=== PATIENT | male | born 1970 | race Caucasian/White ===

== ENCOUNTER 2021-07-08 12:41 | Emergency (ER) | payer BC, SELFPAY ==
--- NOTE | 2021-07-08 12:45 | RT.EKG_ITS ---
APPROVED REPORT Exam: Resting ECG Reason for Exam: dizzy Patient Location: E HR:67 bpm ECG Measurements Heart Rate 67 AXIS DC 145 P 55 QRSd 88 QRS 34 QT 382 T 17 QTc 403 Conclusion Sinus rhythm...normal P axis, V-rate 60- 99
[2021-07-08 12:47] VITALS: BP 139/88; PULSE 90; RESP 18; TEMP 36.4; O2SAT 98
--- NOTE | 2021-07-08 12:59 | W.ED.GENAD ---
Discharge Plan Disposition Patient Disposition: HOME Condition: Stable Discharge Details Clinical Impression: Vertigo Primary Care Provider: Unknown,Unknown ED Provider: Marisabel Adan Discharge Instructions Instructions: Vertigo (ED) Additional Instructions: Continue taking the meclizine as previously prescribed by your primary care provider. At this time head CT, lab, EKG and troponin are all largely within normal limits. Your blood sugar was slightly elevated at 126. Follow up with primary care provider in 3-5 days. Return to ED sooner if any worsening dizziness, inability to walk, double vision, weakness or numbness, headache or concerns. Increase oral fluids. Medical Decision Making 51-year-old male presents to the ER with chief complaint of 1 week of worsening dizziness. He reports that it has gotten worse over the last couple of days. He denies any headache or head injuries denies any visual disturbances or running in his ears. No fever sinus pressure no chest pain abdominal pain or any other associated symptoms. He denies any double vision. He did call his PCP who prescribed him meclizine he did take this yesterday and this morning. He reports little to no relief. He was instructed by his PCP office to present to the ER for further evaluation. Work-up ordered including CBC, CMP, troponins, urinalysis. Will order head CT. EXAM: CT HEAD WO CLINICAL HISTORY: Dizziness. TECHNIQUE: Imaging Protocol: Axial computed tomography images with coronal and sagittal reformatted images were created and reviewed COMPARISON: No exams were available for comparison FINDINGS: The ventricular system is normal in appearance. No evidence of acute intracranial hemorrhage, mass effect, or midline shift. The orbital structures are unremarkable. The temporal bone structures appear intact. Calvarium: Normal. Visualized Paranasal sinuses/Mastoids: Clear. IMPRESSION: Normal cranial CT. Discussed results with patient verbalized understanding. Work-up is largely unremarkable. Discussed continuing to take meclizine following up with PCP discussing a referral for neurology if symptoms persist. Discussed return instructions, verbalized understanding. This text was generated using [employer] system, please disregard any oddities of phrase or misspellings. Lab Data Lab results reviewed: Yes I reviewed the patient's lab results. Lab results narrative: Laboratory Tests Range/Units 07/08/21 07/08/21 07/08/21 13:11 13:11 14:12 WBC (4.4-10.8) 10^3/uL 8.20 RBC (4.36-5.78) 10^6/uL 4.92 Hgb (13.5-17.5) g/dL 15.2 Hct (40.0-50.0) % 44.4 MCV (80-95) fL 90.2 MCH (27.0-33.0) pg 30.9 MCHC (32.0-36.0) % 34.2 RDW (11.8-14.1) % 11.5 L Plt Count (130-400) 10^3/uL 249 MPV (8.0-11.0) fL 10.1 Immature Gran % 0.2 Neutrophils % 53.3 Lymphocytes % 33.7 Monocytes % 9.6 Eosinophils % 2.1 Basophils % 1.1 Nucleated RBC % % 0 Absolute Neutrophils (1.2-6.7) 10^3/uL 4.37 Absolute Lymphocytes (1.2-3.4) 10^3/uL 2.76 Absolute Monocytes (0.1-0.8) 10^3/uL 0.79 Absolute Eosinophils (0.0-0.7) 10^3/uL 0.17 Absolute Basophils (0.0-0.2) 10^3/uL 0.09 Sodium (136-145) mmol/L 138 Potassium (3.5-5.1) mmol/L 3.9 Chloride (98-107) mmol/L 103 Carbon Dioxide (21.0-32.0) mmol/L 27.3 Anion Gap (3-11) mmol/L 7.7 BUN (7-18) mg/dL 16 Creatinine (0.70-1.30) mg/dL 1.0 Estimated GFR/1.73 m2 (mL/min/1.73m2) >= 60.00 Glucose (74-106) mg/dL 126 H Calcium (8.5-10.1) mg/dL 8.6 Magnesium (1.8-2.4) mg/dL 2.2 Total Bilirubin (0.2-1.0) mg/dL 0.4 AST (15-37) U/L 20 ALT (16-63) U/L 46 Alkaline Phosphatase (46-116) U/L 44 L Troponin I (<or=60) ng/L < 50 Total Protein (6.4-8.2) g/dL 7.3 Albumin (3.4-5.0) g/dL 3.5 Urine Color (Yellow) Yellow Urine Clarity (Clear) Clear Urine pH (5-8) 5.5 Ur Specific [place] (1.005-1.025) 1.020 Urine Protein (Negative) mg/dL Negative Urine Ketones (Negative) mg/dL Negative Urine Blood (Negative) Negative Urine Nitrite (Negative) Negative Urine Bilirubin (Negative) Negative Urine Urobilinogen (Up TO 0.2) EU/dL 0.2 Ur Leukocyte Esterase (Negative) Negative Urine Glucose (Negative) mg/dL Negative Range/Units 07/08/21 15:53 WBC (4.4-10.8) 10^3/uL RBC (4.36-5.78) 10^6/uL Hgb (13.5-17.5) g/dL Hct (40.0-50.0) % MCV (80-95) fL MCH (27.0-33.0) pg MCHC (32.0-36.0) % RDW (11.8-14.1) % Plt Count (130-400) 10^3/uL MPV (8.0-11.0) fL Immature Gran % Neutrophils % Lymphocytes % Monocytes % Eosinophils % Basophils % Nucleated RBC % % Absolute Neutrophils (1.2-6.7) 10^3/uL Absolute Lymphocytes (1.2-3.4) 10^3/uL Absolute Monocytes (0.1-0.8) 10^3/uL Absolute Eosinophils (0.0-0.7) 10^3/uL Absolute Basophils (0.0-0.2) 10^3/uL Sodium (136-145) mmol/L Potassium (3.5-5.1) mmol/L Chloride (98-107) mmol/L Carbon Dioxide (21.0-32.0) mmol/L Anion Gap (3-11) mmol/L BUN (7-18) mg/dL Creatinine (0.70-1.30) mg/dL Estimated GFR/1.73 m2 (mL/min/1.73m2) Glucose (74-106) mg/dL Calcium (8.5-10.1) mg/dL Magnesium (1.8-2.4) mg/dL Total Bilirubin (0.2-1.0) mg/dL AST (15-37) U/L ALT (16-63) U/L Alkaline Phosphatase (46-116) U/L Troponin I (<or=60) ng/L Cancelled Total Protein (6.4-8.2) g/dL Albumin (3.4-5.0) g/dL Urine Color (Yellow) Urine Clarity (Clear) Urine pH (5-8) Ur Specific [place] (1.005-1.025) Urine Protein (Negative) mg/dL Urine Ketones (Negative) mg/dL Urine Blood (Negative) Urine Nitrite (Negative) Urine Bilirubin (Negative) Urine Urobilinogen (Up TO 0.2) EU/dL Ur Leukocyte Esterase (Negative) Urine Glucose (Negative) mg/dL HPI General Mode of arrival: ambulatory. Date/Time Provider Initiated Documentation: 07/08/21 12:53. Limitations to Documentation: no limitations. Information obtained by: patient and RN notes reviewed. HPI Narrative: 51-year-old male presents to the ER with chief complaint of 1 week of worsening dizziness. He reports that it has gotten worse over the last couple of days. He denies any headache or head injuries denies any visual disturbances or running in his ears. No fever sinus pressure no chest pain abdominal pain or any other associated symptoms. He denies any double vision. He did call his PCP who prescribed him meclizine he did take this yesterday and this morning. He reports little to no relief. He was instructed by his PCP office to present to the ER for further evaluation. General Stated Complaint: Dizzy/Sync YEISON: 3 Review of Systems All systems reviewed & are unremarkable except as noted in HPI and below Constitutional Constitutional: Denies headache(s) Eyes Eyes: Denies loss of vision ENT Ears, Nose, Mouth, and Throat: Reports vertigo, Reports dizziness and Denies headache(s) Musculoskeletal Musculoskeletal: Denies abnormal gait Neurologic Neurologic: Reports as per HPI, Denies abnormal gait, Reports vertigo, Reports dizziness, Denies headache(s), Denies lack of coordination, Denies localized weakness, Denies loss of vision and Denies other visual disturbances PFSH All Active Problems (Updated 07/08/21 @ 14:45 by Marisabel Adan) Vertigo (Acute) Social History Smoking/Tobacco Use Status: Never Smoking risk assessment performed?: Yes Alcohol Intake: never Drug use: Never Substance use type: does not use Do you feel safe at home: Yes Do you feel safe in your relationship?: Yes Exam Narrative Exam Narrative: Constitutional: Alert and oriented x3. Appears stated age. Normal body habitus. Head: Normocephalic, no trauma. Eyes: Pupils PERRL, Red reflex noted, EOM's intact. Eyelids symmetrical without lesions, discharge, or swelling. ENT: Bilateral TM's WNL, External ear normal to inspection, no mastoid TTP, swelling, or erythema, Nasal turbinates WNL, no nasal discharge. Normal dentition, Posterior pharynx WNL, no exudate. Chest: RRR, Normal S1, S2, distal pulses intact. Resp: Lungs clear to auscultation bilaterally, no wheezes, rales, or rhonchi. Abdomen: Soft, non-distended, Normoactive bowel sounds all 4 quads. Musculoskeletal: Normal gait, 5/5 strength to all four extremities. Skin: No suspicious rashes or lesions. Capillary refill less than 2 sec. Neurologic: Cranial nerves II-XII intact. Alert and oriented x 3. Motor: No deficits noted. Sensory: Intact bilaterally all 4 extremities. Reflexes: DTR's intact bilaterally.. Hematologic/Lymphatic: No ecchymosis, no lymphadenopathy. Course Vital Signs Vital signs: Vital Signs Temperature 36.4 C L 07/08/21 12:47 Pulse 90 07/08/21 12:47 Respiratory Rate 18 07/08/21 12:47 Blood Pressure 139/88 07/08/21 12:47 Pulse Oximetry 98 07/08/21 12:47 Temperature 36.4 C L 07/08/21 12:47 Temperature Source Temporal Artery Scan 07/08/21 12:47 Pulse 90 07/08/21 12:47 Respiratory Rate 18 07/08/21 12:47 Respiratory Effort 07/08/21 12:52 Respiratory Depth Normal 07/08/21 12:52 Respiratory Pattern Normal 07/08/21 12:52 Blood Pressure 139/88 07/08/21 12:47 Blood Pressure Position Supine 07/08/21 12:47 Pulse Oximetry 98 07/08/21 12:47 Oxygen Delivery Method Room Air 07/08/21 12:47 Oxygen Flow Rate 0 07/08/21 12:47 Pain Level 0 07/08/21 12:47
--- NOTE | 2021-07-08 13:00 | DI.CT_ITS ---
Exam(s) CT HEAD WO EXAM: CT HEAD WO CLINICAL HISTORY: Dizziness. TECHNIQUE: Imaging Protocol: Axial computed tomography images with coronal and sagittal reformatted images were created and reviewed COMPARISON: No exams were available for comparison FINDINGS: The ventricular system is normal in appearance. No evidence of acute intracranial hemorrhage, mass effect, or midline shift. The orbital structures are unremarkable. The temporal bone structures appear intact. Calvarium: Normal. Visualized Paranasal sinuses/Mastoids: Clear. IMPRESSION: Normal cranial CT. RADIATION DOSE DELIVERED: 917.93mGy.cm Total DLP 917.93mGy.cm Total DLP CTDIvol DATA REPOSITORY: All CT scans at this facility are submitted to the National Radiology Data Registry (NRDR) Dose Index Registry (DIR) with the [employer] (A[employer]). RADIATION OPTIMIZATION: All CT scans at this facility use at least one of these dose optimization te chniques: automated exposure control; mA and/or kV adjustment per patient size (includes targeted exa ms where dose is matched to clinical indication); or iterative reconstruction.
[2021-07-08 13:16] LABS: Abs Immature Grans 0.02 10^3/uL (0.0-0.06); Absolute Basophil Count 0.09 10^3/uL (0.0-0.2); Absolute Eosinophil Count 0.17 10^3/uL (0.0-0.7); Absolute Lymphocyte Count 2.76 10^3/uL (1.2-3.4); Absolute Monocyte Count 0.79 10^3/uL (0.1-0.8); Absolute Neutrophil Count 4.37 10^3/uL (1.2-6.7); Basophils % 1.1; Eosinophils % 2.1; HCT 44.4 % (40.0-50.0); HGB 15.2 g/dL (13.5-17.5); Immature Grans % 0.2; Lymphocytes % 33.7; MCH 30.9 pg (27.0-33.0); MCHC 34.2 % (32.0-36.0); MCV 90.2 fL (80-95); MPV 10.1 fL (8.0-11.0); Monocytes % 9.6; Neutrophils % 53.3; Nucleated RBC 0 %; Platelet Count 249 10^3/uL (130-400); RBC 4.92 10^6/uL (4.36-5.78); RDW 11.5 % (11.8-14.1); RDW-SD 38.2 fL
[2021-07-08 13:35] LABS: ALT 46 U/L (16-63); AST 20 U/L (15-37); Albumin 3.5 g/dL (3.4-5.0); Alkaline Phosphatase 44 U/L (46-116); Anion Gap 7.7 mmol/L (3-11); BUN 16 mg/dL (7-18); Bilirubin, Total 0.4 mg/dL (0.2-1.0); CO2 27.3 mmol/L (21.0-32.0); Calcium 8.6 mg/dL (8.5-10.1); Chloride 103 mmol/L (98-107); Glucose 126 mg/dL (74-106); Magnesium 2.2 mg/dL (1.8-2.4); Potassium 3.9 mmol/L (3.5-5.1); Sodium 138 mmol/L (136-145); Total Protein 7.3 g/dL (6.4-8.2); Troponin I < 50 ng/L (<or=60)
[2021-07-08 14:20] LABS: Bilirubin Negative (Negative); Blood Negative (Negative); Clarity Clear (Clear); Glucose Negative (Negative); Ketones Negative (Negative); Leukocyte Esterase Negative (Negative); Nitrite Negative (Negative); Urobilinogen 0.2 EU/dL (Up TO 0.2); pH 5.5 (5-8)
[2021-07-08 15:05] VITALS: BP 120/83; PULSE 71; RESP 16; O2SAT 96
== END 2021-07-08 15:11 | disposition home or self-care (01) ==
PROVIDERS: Emergency Provider Registered Nurse Emergency
DX: R42 Dizziness and giddiness (principal)
CPT/HCPCS: 36415; 80053; 93005; 99284; 70450; 81003; 83735; 84484; 85025; 93010; 99283